=== PATIENT | male | born 1970 | race Caucasian/White ===

== ENCOUNTER 2023-03-31 11:24 | Emergency (ER) | payer OTHER, SELFPAY ==
--- NOTE | 2023-03-31 11:46 | ED.GENMED ---
History of Present Illness
General
Chief Complaint: CODE
Source: ambulance crew
Exam Limitations: clinical condition (Code)
Time Seen by Provider: 03/31/23 11:45
Nursing documentation reviewed up to this point in time: agreed with
History of Present Illness
History of Present Illness:
53-year-old male with cardiac arrest. Patient was outside of [facility], and seen on the ground, EMS was called. EMS placed an IV and a bridging airway. they gave 2 rounds of epinephrine and transported patient to hospital performing CPR en route.
They noted asystole on monitor.
Past History
Past History
ED Past Medical History: Seizures, Valvular disease, Psychiatric (Schizophrenia) and Other (MVP Schizophrenia)
ED Past Surgical History: Appendectomy and Other (exploratory laparotomy)
Social History
Tobacco: Smoker
Alcohol: Occasional
Personal: Single
Living: with family
Family History
Family History: Negative Diabetes, Hypertension or CAD
Review of Systems
Review of Systems
Allergies reviewed?: Yes
Unable to obtain full review of systems at this time due to: intubated (With bridging airway)
All Other Systems: Not applicable
Phy Exam
Physical Exam
Physical Exam:
CODE EXAM:
VITAL SIGNS: No palpable blood pressure, no pulses, no respiration.
GENERAL EXAM: Mottled
EYES: Pupils fixed
ENT: Patient intubated with bridging airway
NECK: No venous distention
RESPIRATORY: Equal breath sounds
CARDIAC: Absent heart sounds
VASCULAR: Absent pulses
ABDOMEN: Soft no masses
GUAIAC: Not done
MUSCULOSKELETAL: Unable to evaluate strength
EXTREMITIES: No edema or contractures
SKIN: No rash, 2 cm laceration above left eyebrow
PSYCH: Mood, affect unable to evaluate
Course
Orders/Labs/Results
Orders:
Orders
03/31/23 11:35
Electrocardiogram (*1) Urgent
Reason for Study: Chest Pain
EKG- Treatment ONCE
Procedures
Intubations
Procedure completed by: Dr. Allan
Method of Intubation: glidescope
Tube size (cm): 8.0
Placement confirmed by: auscutation, capnography and direct visualization
Breath sounds after intubation: equal
Intubation complications: no complications
MDM/Problems Addressed
Differential Diagnosis Includes:
Myocardial infarction, dysrhythmia
MDM/Problems Addressed:
53-year-old male with cardiac arrest, unclear etiology. Intubation performed, CPR performed, multiple rounds of ACLS given in ED and prior to arrival. Unable to obtain return of spontaneous circulation.
Chronic conditions affecting care: Previous abdomnial surgery and Psychiatric illness
Acute Exacerbation and/or Progression of Chronic Illness: Psychiatric illness
*Pulse Oximetry
Patient hypoxic: yes
*EKG
Interpreted by ED Provider?: NA
*Sales Recruitment Specialist Interpretation
Rate: other (Asystole)
Interpretation: abnormal
Heart Rate: 0
Rhythm: other (Asystole)
*Critical Care Note
Total Time (30-74mins, 75-104mins- exclusive of procedures): Not Applicable
Data Reviewed
Review of Other/Old Records Reveals: Labs (11.8 hemoglobin. 08/10/2018, anemia) and Records (Prior colonoscopy in 2012)
Source: records
Patient Management
Escalation/DeEscalation of care consider admission/obs:
Patient
Update Note
Update Note:
D/w Emmanuel from concrete wall grinder operator's office who states [place] may [place] [facility] [place] and will be a hold for further investigation. D/w Kenia Amanda, patient's mother.
ED Attending Note
-
Portions of this chart may have been created with voice recognition software.� Occasional wrong word or��sound alike� substitutions may have occurred due to the inherent limitations of voice recognition software.
Discharge Plan
Departure
Patient Disposition:
Date of Disposition: 03/31/23
Time of Disposition: 11:42
Discharge Problem:
Cardiac arrest
Prescriptions:
No Action
divalproex 500 MG tablet extended release 24 hr
1,000 mg PO HS
benztropine 1 MG tablet
2 mg PO DAILY
Patient Comments:
2 mg in AM and 1 mg hs
ibuprofen 600 MG tablet
600 mg PO TID
Patient Comments:
WITH FOOD
albuterol sulfate [Ventolin HFA] 90 MCG/PUFF HFA aerosol inhaler
1 - 2 puff inhalation Q6H PRN (Reason: WHEEZING)
paliperidone [Invega] 6 MG tablet extended release 24hr
6 mg PO BID
Clozapine
PO
Patient Comments:
12.5 mg in AM, 25 mg at 1300 and 1700, and 500mg at hs
diazepam [Valium] 5 MG tablet
5 mg PO BID
Ferrous Sulfate 325 MG
325 mg PO TID
Flonase Nasal [place]: 2 SPRAYS
2 inhalation DAILY
benztropine 1 MG tablet
1 mg PO HS
trifluoperazine 2 MG tablet
10 mg HS
trifluoperazine 2 MG tablet
5 mg
Patient Comments:
at 1200
Referrals:
UNKNOWN,NO INTERVIEW [Family Provider] -
--- NOTE | 2023-03-31 12:48 | EDRN ---
Pt. arrived via EMS with CPR in progress. EMS was dispatched to the 911 call around 1110. Witnesses say that he was on the side of the road, and was struggling before becoming unresponsive. 4 epis given by EMS with IGEL placed. 500 ml of fluids
given. 18LAC placed by EM. Pt. arrived to the ER at 1124, CPR continued. Code sheet documentation shows when epi was given 3 additional times. 1g of magnesium also given. 8.O et tube placed by Dr. Allan. Pulse checks showed only asystole, 1 time
of PEA @ 1136. Time of @ 1142, called by Dr. Allan. 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 [facility] called. Pt's family contacted by Dr. Allan.
== END 2023-03-31 13:28 | disposition expired ==
LOC: EMR 11:24
PROVIDERS: EMERGENCY PHYSICIAN Emergency Medicine
DX: I46.9 Cardiac arrest, cause unspecified (principal); F20.9 Schizophrenia, unspecified; I21.9 Acute myocardial infarction, unspecified; F17.200 Nicotine dependence, unspecified, uncomplicated; Z90.49 Acquired absence of other specified parts of digestive tract
CPT/HCPCS: 99285; 31500